=== PATIENT | male | born 2000 | race Caucasian/White ===

== ENCOUNTER 2020-08-25 16:35 | Emergency (ER) | payer SELFPAY | END 2020-08-25 18:55 | disposition home or self-care (01) | LOC: ERS 16:35 | DX: S82.51XA Displaced fracture of medial malleolus of right tibia, initial encounter for closed fracture (principal); W19.XXXA Unspecified fall, initial encounter | CPT/HCPCS: 27762 ==

== ENCOUNTER 2020-09-05 17:38 | Outpatient (CLI) | payer SELFPAY ==
[2020-09-06 02:15] LABS: SARS-CoV-2 PCR by NAA Not Detected (NotDetected)
== END 2020-09-05 17:39 | disposition home or self-care (01) ==
LOC: LABBT 17:38
PROVIDERS: ATTEND Orthopaedic Surgery
DX: Z01.812 Encounter for preprocedural laboratory examination (principal); S82.51XA Displaced fracture of medial malleolus of right tibia, initial encounter for closed fracture; Z20.822 Contact with and (suspected) exposure to COVID-19
CPT/HCPCS: 87635; U0003; U0005

== ENCOUNTER 2020-09-07 10:38 | Day surgery (SDC) | payer OTHER ==
[2020-09-06 14:38] VITALS: BMI 24.4
[2020-09-07] MEDS ORDERED: Midazolam HCl 2 mg/2 ml Vial ONE ×2 (11:21→11:24)
[2020-09-07] MEDS ORDERED: Fentanyl 100 MCG/2 ML VIAL ONE ×2 (11:21→11:24)
[2020-09-07] MEDS ORDERED: PROPOFOL 200 MG/20 ML VIAL ONE (13:32)
[2020-09-07] MEDS ORDERED: Dexamethasone 20 MG/5 ML VIAL ONE (13:32)
[2020-09-07] MEDS ORDERED: Bupivacaine HCl 0.5%/Epinephrine 1:200,000/PF 30 ml Vial ONE (13:32)
[2020-09-07] MEDS ORDERED: Ondansetron PF 4 MG/2 ML Vial ONE (13:32)
== END 2020-09-07 16:41 | disposition home or self-care (01) ==
LOC: SDC 10:38
PROVIDERS: ATTEND Orthopaedic Surgery
PROC: 0QSG04Z Reposition Right Tibia with Internal Fixation Device, Open Approach (ICD-10-PCS; principal; 2020-09-07)
DX: S82.51XA Displaced fracture of medial malleolus of right tibia, initial encounter for closed fracture (principal); W24.0XXA Contact with lifting devices, not elsewhere classified, initial encounter; Y99.0 Civilian activity done for income or pay
CPT/HCPCS: 76000; C1713; J0690; J1100; J2250; J2405; J2704; J3010